=== PATIENT | female | born 1980 ===

== ENCOUNTER → 2020-11-06 | Outpatient (CLI) | payer SELFPAY ==
[~2020-11-06] MED LIST: COVID-19 VACCINE (PFIZER)/PF 30 MCG/0.3 ML VIAL IM ONE; EPINEPHRINE INJ/PF 1 MG/1 ML AMPULE IM PRN
--- OUTSIDE RECORDS SUMMARY | 2020-11-09 10:31 | XMS REPORT ---
:1980 [facility] [address] [place] [address] Care Team Providers Name Role Phone CANDICE BELTRAN Primary Care Physician Unavailable CANDICE BELTRAN Attending Clinician Unavailable SOCORRO VASQUEZ Attending Clinician Unavailable Allergies, Adverse Reactions, Alerts This patient has no known allergies or adverse reactions. Medications Ordered Filled Start Stop Current Ordering Indication Dosage Frequency Signature Comments Components Medication Medication Date Date Medication? Clinician (SIG) Name Name miscellaneo Yes Please Please medical 02-18 draw draw supply Misc 00:00: COVID-19 COVI D19 00 antibody antibody test for test for dx Z20.828 dx and fax to [phone] and fax 06 to miscellaneo 2020- No Please Please medical 02-16 draw draw supply Misc 00:00: 00:00 COVID-19 COVI D-19 00 :00 antibody antibody test for test for dx Z20.828 dx and fax to [phone] and fax 06 to [id number] ELDERBERRY Yes Take by Take b y FRUIT ORAL 1-10 mouth. mouth. 08:24: 28 levoFLOXaci 2018-10 2019- No 500mg Take 1 Take 1 n 1-25 12-05 tablet tablet (LEVAQUIN) 00:00: 23:59 (500 mg (500 m g 500 MG 00 :00 total) by total) by tablet mouth mouth daily. for daily. 10 days for 10 days ACETAMINOPH 2016-10 Yes Take by Take by EN (TYLENOL 1-30 mouth. mouth. ORAL) 11:25: 33 TURMERIC 2016-10 Yes Take by Take by ROOT 1-30 mouth. mouth. EXTRACT 11:25: ORAL 33 BETA 2017- Yes by by GLUCAN, 1-30 Miscellane Miscell an 1,3/1,4-D, 11:25: ous route. eou s MIS 33 route. TURMERIC 2017-0 No Take by Take by ROOT 8-17 mouth. mouth. EXTRACT 11:19: ORAL 29 multivitami 2017-0 No 1{capsu Take 1 Take 1 n capsule 817 le} capsule by capsu le 11:19: mouth by mouth 29 daily. daily. BETA 2017-0 No by by GLUCAN, 8- Miscellane Miscell an 1,3/1,4-D, 11:19: ous route. eou s MISC 29 route. ibuprofen 2016- Yes 600mg Q8H Take 1 Take 1 (ADVIL,MOTR 7-18 tablet tablet IN) 600 MG 00:00: (600 mg (600 m g tablet 00 total) by total) by mouth mouth every every eight (8) eight (8) hours as hours as needed for needed pain (TAKE for pain WITH (TAKE FOOD). WITH FOOD). ibuprofen No 600MG Q8H Take 1 Take 1 (ADVIL,MOTR 7-18 tablet tablet IN) 600 MG 00:00: (600 mg (600 m g tablet 00 total) by total) by mouth mouth every every eight (8) eight (8) hours as hours as needed for needed pain (TAKE for pain WITH (TAKE FOOD). WITH FOOD). methocarbam No 500MG [id number] Take 1 T shahriar 1 ol 05-01 [id number] tablet tablet (ROBAXIN) 00:00: 3D (500 mg (500 mg 500 MG 00 total) by total) by tablet mouth mouth Three (3) Three (3) times a times a day as day as needed needed (muscle (muscle spasm). spasm). methocarbam 2020- No 500mg Q.[id number] Take 1 T shahriar 1 ol 718 -10 [id number] tablet tablet (ROBAXIN) 00:00: 00:00 3D (500 mg (500 mg 500 MG 00 :00 total) by total) by tablet mouth mouth Three (3) Three (3) times a times a day as day as needed needed (muscle (muscle spasm). spasm). amoxicillin 2016- No 500MG Take 1 Take 1 (AMOXIL) 12-2018 capsule capsule 500 MG 00:00: 23:59 (500 mg (500 mg capsule 00 :00 total) by total) b y mouth mouth Three (3) Three (3) times a times a day. for day. for 10 days 10 days amoxicillin 2016- No 500MG Take 1 Take 1 (AMOXIL) 12-2018 capsule capsule 500 MG 00:00: 23:59 (500 mg (500 mg capsule 00 :00 total) by total) b y mouth mouth Three (3) Three (3) times a times a day. for day. for 10 days 10 days ibuprofen 2015-10 No 100MG Q8H Chew 100 Chew 1 00 (ADVIL,MOTR 0-01 mg every mg ev marbella IN) 100 MG 09:22: eight (8) eigh t (8) chewable 41 hours as hours as tablet needed for needed fever. for fever. ibuprofen 2015-10 No 100MG Q8H Chew 100 Chew 1 00 (ADVIL,MOTR 0-01 mg every mg ev marbella IN) 100 MG 09:22: eight (8) eigh t (8) chewable 41 hours as hours as tablet needed for needed fever. for fever. ibuprofen 2015-10- No 100MG Q8H Chew 100 Chew 1 00 (ADVIL,MOTR 0-01 07-18 mg every mg ev marbella IN) 100 MG 09:22: 00:00 eight (8) eigh t (8) chewable 41 :00 hours as hours as tablet needed for needed fever. for fever. amoxicillin 2015-10- No 875MG Take 1 Take 1 (AMOXIL) 0-01 10-11 tablet tablet 875 MG 00:00: 23:59 (875 mg (875 mg tablet 00 :00 total) by total) by mouth Two mouth Two (2) times (2) times a day. for a day. 10 days for 10 days amoxicillin 2015-10- No 875MG Take 1 Take 1 (AMOXIL) 0-01 10-11 tablet tablet 875 MG 00:00: 23:59 (875 mg (875 mg tablet 00 :00 total) by total) by mouth Two mouth Two (2) times (2) times a day. for a day. 10 days for 10 days ACETAMINOPH 2016-0 No Take by Take by EN (TYLENOL 2-16 mouth. mouth. ORAL) 10:09: 10 GUAIFENESIN 2016-0 No Take by Take by /PHENYLEPHR 2-16 mouth. mouth. INE HCL 10:09: (MUCINEX 10 COLD ORAL) ACETAMINOPH 2015-0 No Take by Take by EN (TYLENOL 2-16 mouth. mouth. ORAL) 10:09: 10 ACETAMINOPH 2015-0 No Take by Take by EN (TYLENOL 2-16 mouth. mouth. ORAL) 10:09: 10 GUAIFENESIN 2015-0 No Take by Take by /PHENYLEPHR 2-16 mouth. mouth. INE HCL 10:09: (MUCINEX 10 COLD ORAL) ACETAMINOPH 2015-0 No Take by Take by EN (TYLENOL 2-16 mouth. mouth. ORAL) 10:09: 10 GUAIFENESIN 2015-0 No Take by Take by /PHENYLEPHR 2-16 mouth. mouth. INE HCL 10:09: (MUCINEX 10 COLD ORAL) GUAIFENESIN 2015-0 No Take by Take by /PHENYLEPHR 2-16 mouth. mouth. INE HCL 10:09: (MUCINEX 10 COLD ORAL) ACETAMINOPH 2015-0 No Take by Take by EN (TYLENOL 2-16 mouth. mouth. ORAL) 10:09: 10 GUAIFENESIN 2016-0 2020- No Take by Take by /PHENYLEPHR 2-16 01-10 mouth. mouth. INE HCL 10:09: 00:00 (MUCINEX 10 :00 COLD ORAL) levonorgest 2014-0 No 1{each} 1 each by 1 each by rel 6-21 Intrauteri Intrauter (MIRENA) 20 13:42: ne route ine route mcg/24 hr 09 once. once. (5 years) IUD levonorgest 2014-0 Yes 1{each} 1 each by 1 each by rel 6-21 Intrauteri Intrauter (MIRENA) 20 13:42: ne route ine route mcg/24 hr 09 once. once. (5 years) IUD levonorgest 2014-0 No 1{each} 1 each by 1 each by rel 6-21 Intrauteri Intrauter (MIRENA) 20 13:42: ne route ine route mcg/24 hr 09 once. once. (5 years) IUD levonorgest No 1{each} 1 each by 1 each by rel 6-21 Intrauteri Intrauter (MIRENA) 20 13:42: ne route ine route mcg/24 hr 09 once. once. (5 years) IUD multivitami Yes 1{capsu Take 1 Take 1 n capsule le} capsule by capsu le mouth by mouth daily. daily. Problems Condition Condition Condition Status Onset Resolution Last Treatin g Comments Name Details Category Date Date Treatment Clinician Date Lump of Lump of [id number] Active 2017-05-31 skin of skin of 05-31 11:38:03 back back 00:00: 00 Procedures Procedure Date / Time Performed Performing Clinician Cr swenson US BREAST LIMITED LEFT 2019-10-31 18:27:00 Jacqueline Beltran MAMMO DIGITAL DIAGNOSTIC DAWSON 2019-10-31 18:13:00 Jacqueline Beltran BILATERAL W CAD XR CHEST PA AND LATERAL 2019-09-08 15:47:43 Alfonzo Esparza Wort h POCT RAPID INFLUENZA JAY 2019-09-08 15:44:00 Alfonzo Esparza Wor th FLUCELVAX QUADRIVALENT PFS IM; 2018-07-27 10:56:47 Shahnaz Win WITHOUT PERSERVATIVE (48+ MO) MRI LUMBAR SPINE WO CONTRAST 2017-10-12 21:37:37 Gokul Vasquezhalmaricruz Results Test Description Test Time Test Comments Text Results Atomic Results Result Comments SARS-CoV-2 RNA Nose Ql JAY+probe 2020-10-01 00:00:00 Test Item Value Reference Range Comments SARS-CoV-2 RNA Nose Ql JAY+probe Not detected [place] [facility] Case ID: (test code = 97634-4) [id number] SARS-CoV-2 RNA Nose Ql [id number]+[id number] 00:00:00 Test Item Value Reference Range Comments SARS-CoV-2 RNA Nose Ql Not detected [place] [facility] Case JAY+probe (test code = ID: 66859 9631 58164-9) SARS-CoV-2 RNA Resp Ql [id number]+[id number] 00:00:00 Test Item Value Reference Range Comments SARS-CoV-2 RNA Resp Ql Not detected [place] [facility] Case JAY+probe (test code = ID: 29420 9631 22826-3) SARS-CoV-2 RNA Resp Ql [id number]+[id number] 00:00:00 Test Item Value Reference Range Comments SARS-CoV-2 RNA Resp Ql Not detected [place] [facility] Case JAY+probe (test code = ID: 51759 9631 96636-0) #[id number] 13:27:00US Breast Limited Left (10/31/2019 1:27 PM EST)SpecimenImpressionsPerformed AtNo mammographic or sonographic evidence for malignancy at this time. Final Assessment: BIRADS 1: Negative. Recommendations: Bilateral screening mammogram in/at 12 months. Notes: These results were discussed with the patient at the time of imaging.--Mammography does not detect all cancers. Any suspicious palpable mass should be evaluated further clinically.--The patient has been entered into a reminder system witha target due date for the next mammogram.--Letter sent to the patient. [facility] RADNarrativePerformed AtExam: Bilateral Diagnostic 3-D Mammogram with CAD and Breast Ultrasound History: Patient has an area of palpable concern in her upper outer left breast. Technique: Bilateral digital diagnostic 2-D and 3-D mammogram with CAD (Computer-Aided Detection). Left breast ultrasound. Comparison: None. Breast Density: b - There are scattered areas of fibroglandular density Findings: PHYSICAL EXAM: Palpation throughout the area of clinical concern in the upper left breast is performed. No focal hard mass is palpated. There are no skin changes. The nipple is normal and there is no nipple discharge. MAMMOGRAM FINDINGS: There are scattered fibroglandular densities in each breast. There is no dominant mass or asymmetry. There are no areas of skin thickening or architectural distortion. There are no suspicious microcalcifications. Both breasts are unremarkable. ULTRASOUND FINDINGS: Real- time sonography is performed in a wide area throughout the upper and outer aspect of this patient's left breast. Nobreast mass or cyst is seen. [facility] RADProcedure NoteInterface, Rad Results In - 10/31/2019 3:10 PM ESTExam: Bilateral Diagnostic 3-D Mammogram with CAD and Breast Ultrasound History: Patient has an area of palpable concern in her upper outer left breast. Technique: Bilateral digital diagnostic 2-D and 3-D mammogram with CAD (Computer-Aided Detection). Left breast ultrasound. Comparison: None. Breast Den sity: b - There are scattered areas of fibroglandular density Findings: PHYSICAL EXAM: Palpation throughout the area of clinical concern in the upper left breast is performed. No focal hard mass is palpated. There are no skin changes. The nipple is normal and there is no nipple discharge. MAMMOGRAM FINDINGS: There are scattered fibroglandular densities in each breast. There is no dominant mass or asymmetry. There are no areas of skin thickening or architectural distortion. There are no suspicious microcalcifications. Both breasts are unremarkable. ULTRASOUND FINDINGS: Real-time sonography is performed in a wide area throughout the upper and outer aspect of this patient's left breast. No breast mass or cyst is seen. IMPRESSION: No mammographic or sonographic evidence for malignancy at this time. Final Assessment: BIRADS 1: Negative. Recommendations: Bilateral screening mammogram in/at 12 months. Notes: These results were discussed with the patient at the time of imaging. --Mammography does not detect all cancers. Any suspicious palpable mass should be evaluated further clinically. --The patienthas been entered into a reminder system with a target due date for the next mammogram. --Letter sentto the patient. Performing OrganizationAddressCity/State/ZipcodePhone [facility] [id number] [facility] [place] [address]#[id number] 13:13:00Mammo Digital Diagnostic Dawson Bilateral W CAD (10/31/2019 1:13 PM EST)SpecimenImpressionsPerformed At mammographic or sonographic evidence for malignancy at this time. Final Assessment: BIRADS 1: Negative. Recommendations: Bilateral screening mammogram in/at 12 months. Notes: These results were discussed with the patient at the time of imaging.--Mammography does not detect all cancers. Any suspicious palpable mass should be evaluated further clinically.--The patient has been entered intoa reminder system with a target due date for the next mammogram.--Letter sent to the patient. [facility] RAD NarrativePerformed AtExam: Bilateral Diagnostic 3-D Mammogram with CAD and Breast Ultrasound History: Patient has an area of palpable concern in her upper outer left breast. Technique: Bilateral digital diagnostic 2-D and 3-D mammogram with CAD (Computer-Aided Detection). Left breast ultrasound. Comparison: None. Breast Density: b - There are scattered areas of fibroglandular density Findings: PHYSICAL EXAM: Palpation throughout the area of clinical concern in the upper left breast is performed. No focal hard mass is palpated. There are no skin changes. The nipple is normal and there isno nipple discharge. MAMMOGRAM FINDINGS: There are scattered fibroglandular densities in each breast. There is no dominant mass or asymmetry. There are no areas of skin thickening or architectural distortion. There are no suspicious microcalcifications. Both breasts are unremarkable. ULTRASOUND FINDINGS: Real- time sonography is performed in a wide area throughout the upper and outer aspect of this patient's left breast. No breast mass or cyst is seen. [facility] RADProcedure NoteInterface, Rad Results In -10/31/2019 3:10 PM ESTExam: Bilateral Diagnostic 3-D Mammogram with CAD and Breast Ultrasound History: Patient has an area of palpable concern in her upper outer left breast. Technique: Bilateral digital diagnostic 2-D and 3-D mammogram with CAD (Computer-Aided Detection). Left breast ultrasound. Comparison: None. Breast Density: b - There are scattered areas of fibroglandular density Findings: PHYSICAL EXAM: Palpation throughout the area of clinical concern in the upper left breast is performed. Nofocal hard mass is palpated. There are no skin changes. The nipple is normal and there is no nipple discharge. MAMMOGRAM FINDINGS: There are scattered fibroglandular densities in each breast. There is no dominant mass or asymmetry. There are no areas of skin thickening or architectural distortion. There are no suspicious microcalcifications. Both breasts are unremarkable. ULTRASOUND FINDINGS: Real-time sonography is performed in a wide area throughout the upper and outer aspect of this patient's left breast. No breast mass or cyst is seen. IMPRESSION: No mammographic or sonographic evidence for malignancy at this time. Final Assessment: BIRADS 1: Negative. Recommendations: Bilateral screening mammogram in/at 12 months. Notes: These results were discussed with the patient at the time of imaging. -- Mammography does not detect all cancers. Any suspicious palpable mass should be evaluated further clinically. --The patient has been entered into a reminder system with a target due date for the next mammogram. --Letter sent to the patient. Performing OrganizationAddressCity/State/ZipcodePhone [facility] [id number] [facility] [place] [address]#[id number] 10:52:28XR Chest 2 views (09/08/2019 10:47 AM EST)SpecimenImpressionsPerformed AtRight lower lobe infiltrateSigned (Electronic Signature): 09/08/2019 10:53 AM Signed By: EDUARDO Rios RADNartivePerformed AtExam: Chest Two Views History: Cough Technique: 2 views Comparison: 2016 Findings: Right lower lobe infiltrate is demonstrated suggesting pneumonia. Left lung is clear. There is no associated pleural effusion. Cardiac silhouette is unchanged and unremarkable. [facility] RADProcedure NoteInterface, Rad Results In - 09/08/2019 10:55 AM ESTExam: Chest Two Views History: Cough Technique: 2 views Comparison: 2016 Findings: Right lower lobe infiltrate is demonstrated suggesting pneumonia. Left lung is clear. There is no associated pleural effusion. Cardiac silhouette is unchanged and unremarkable. IMPRESSION: Right lower lobe infiltrate Signed (Electronic Signature): 09/08/2019 10:53 AM Signed By: Bob Riosforming OrganizationAddONTRAPORTty/[facility]/ZipcodePhone [facility] [id number] [facility] [place] [address]#[id number] 10:52:28XR Chest 2 views (09/08/2019 10:47 AM EST)SpecimenImpressionsPerformed AtRight lower lobe infiltrateSigned (Electronic Signature): 09/08/2019 10:53 AM Signed By: EDUARDO Rios RADEsvinformed AtExam: Chest Two Views History: Cough Technique: 2 views Comparison: 2016 Findings: Right lower lobe infiltrate is demonstrated suggesting pneumonia. Left lung is clear. There is no associated pleural effusion. Cardiac silhouette is unchanged and unremarkable. [facility] RADProcedure NoteInterface, Rad Results In - 09/08/2019 10:55 AM ESTExam: Chest Two Views History: Cough Technique: 2 views Comparison: 2016 Findings: Right lower lobe infiltrate is demonstrated suggesting pneumonia. Left lung is clear. There is no associated pleural effusion. Cardiac silhouette is unchanged and unremarkable. IMPRESSION: Right lower lobe infiltrate Signed (Electronic Signature): 09/08/2019 10:53 AM Signed By: DURGA Rioserforming OrganizationAddressCity/State/ZipcodePhone [facility] [id number] [facility] [place] [address]#[id number] 10:44:00 Test Item Value Reference Range Comments Rapid Influenza A JAY, POC (test code = Rapid Negative Ne gative Influenza A JAY, POC) Rapid Influenza B JAY, POC (test code = Rapid Negative Ne gative Influenza B JAY, POC) POC RAPID INFLUENZA INTERNAL CONTROL (test QC Acceptable code = POC RAPID INFLUENZA INTERNAL CONTROL) Rapid Influenza Lot, POC (test code = Rapid [id number] Influenza Lot, POC) Rapid Influenza Expiration Date, POC (test 11/25/2019 code = Rapid Influenza Expiration Date, POC) INSTR S/N Influenza POCT (test code = INSTR 1129H30F S/N Influenza POCT) #[id number] 10:08:11MRI Lumbar Spine Wo Contrast (10/12/2017 4:37 PM EST)SpecimenImpressionsPerformed At1. No mass or suspicious pathology in the region of clinical concern.2. Mild disc and facet degeneration mid to low lumbar spine without neural impingement. Signed (Electronic Signature): 2017 10:11 AM Signed By: Angel Spencer [facility] RADNarrativePerformed AtExam:MRI Lumbar Spine without contrast History:P alpable abnormality right back soft tissues. Technique:Complete MRI of the lumbar spine without contrast. Comparison:None. Findings: The region of clinical concern is marked by 2 vitamin E capsules. Deep to this is normal- appearing subcutaneous fat and paraspinal musculature. No mass or suspicious imaging findings. No focal malalignment. Very mild disc degeneration L3-4, L4-5, and T11-T12. Noacute fracture or pars defect. Conus terminates normally. Cauda equina nerve roots unremarkable. Imaged abdomen and pelvic soft tissues unremarkable. Lower thoracic levels:No significant focal abnormality. L1- 2:No significant focal abnormality. L2-3:No significant focal abnormality. L3-4:Mild diffuse disc bulge. L4-5:Mild disc bulge and facet arthropathy. L5-S1:No significant focal abnormality. [facility] RADProcedure NoteInterface, Rad Results In - 2017 10:13 AM ESTExam: MRI Lumbar Spine without contrast History: Palpable abnormality right back soft tissues. Technique: Complete MRI of the lumbar spine without contrast. Comparison: None. Findings: The region of clinical concern is marked by 2 vitamin E capsules. Deep to this is normal-appearing subcutaneous fat and paraspinal musculature. No mass or suspicious imaging findings. No focal malalignment. Very mild disc degenera tion L3-4, L4-5, and T11-T12. No acute fracture or pars defect. Conus terminates normally. Cauda equina nerve roots unremarkable. Imaged abdomen and pelvic soft tissues unremarkable. Lower thoracic levels: No significant focal abnormality. L1-2: No significant focal abnormality. L2-3: No significant focal abnormality. L3-4: Mild diffuse disc bulge. L4-5: Mild disc bulge and facet arthropathy. L5- S1: No significant focal abnormality. IMPRESSION: 1. No mass or suspicious pathology in the region of clinical concern. 2. Mild disc and facet degeneration mid to low lumbar spine without neural impingement. Signed (Electronic Signature): 2017 10:11 AM Signed By: Angel Spencer [facility]ENS-LIMESTONE HOSPITALerforming OrganizationAddressCity/State/ZipcodePhone NumberOK[facility] [id number] [facility].[place], [place] [address]RC Soft Tissue [id number] 11:29:35US Soft Tissue Abdomen (06/04/2017 11:29 AM) Specimen Performing Laboratory [facility] RAD [address] [facility] [place] [address] Impressions No discrete cystic or solid mass identified. Signed (Electronic Signature): 06/04/2017 11:48 AM Signed By: Franko Dias MD Narrative Exam:Ultrasound of the Abdomen Wall History:Palpable concern on the left lower back. Technique:Realtime ultrasonography of the abdominal wall. Comparison:None Findings:No solid or cytic mass lesions are identified. No fluid collections. No evidence of abdominal wall defect or hernia. The palpable concern correlates with subcutaneous fatty tissues, slightly left of midline. Procedure Note Interface, RadResults In - 06/04/2017 11:50 AM EDT Exam: Ultrasound of the Abdomen Wall History: Palpable concern on the left lower back. Technique: Realtime ultrasonography of the abdominal wall. Comparison: None Findings: No solid or cytic mass lesions are identified. No fluid collections. No evidence of abdominal wall defect or hernia. The palpable concern correlates with subcutaneous fatty tissues, slightly left of midline. IMPRESSION: No discrete cystic or solid mass identified. Signed (Electronic Signature): 06/04/2017 11:48 AM Signed By: Franko Hernandez MDUrinalysis2017-07-18 14:54:00 Test Item Value Reference Range Comments Color, UA (test code = Color, UA) Yellow Clarity, UA (test code = Clarity, UA) Clear Specific Clinton, UA (test code = Specific 1.010 1.005 -1.030 Clinton, UA) pH, UA (test code = pH, UA) 7.0 5.0-8.0 Leukocyte Esterase, UA (test code = Leukocyte Negative Ne gative Esterase, UA) Nitrite, UA (test code = Nitrite, UA) Negative Negative Protein, UA (test code = Protein, UA) Negative Negative Glucose, UA (test code = Glucose, UA) Negative Negative Ketones, UA (test code = Ketones, UA) Negative Negative Bilirubin, UA (test code = Bilirubin, UA) Negative Negati ve Blood, UA (test code = Blood, UA) Trace Negative RBC, UA (test code = RBC, UA) 1 /HPF 0-3 /HPF WBC, UA (test code = WBC, UA) 1 /HPF 0-2 /HPF Squam Epithel, UA (test code = Squam Epithel, 1 /HPF 0- 5 /HPF UA) Bacteria, UA (test code = Bacteria, UA) None Seen None See n /HPF Urine Collection Type (test code = Urine Urine, Voided Collection Type) Qualitative, [id number] 14:54:00 Test Item Value Reference Range Comments Preg Test, Ur (test code = Preg Test, Ur) Negative Negati ve [facility] Rapid Group A Strep Antigen (Sent to Lab)2017-05-01 14:51:00 Test Item Value Reference Range Comments Rapid Strep A Screen (test code = Rapid Strep A Negative Negative Screen) [facility] Rapid Group A Strep Antigen (Sent to Lab)2016-07-15 09:28:00 Test Item Value Reference Range Comments Rapid Strep A Screen (test code = Rapid Strep A Positive Negative Screen) Encounters Start End Encounter Admission Attending Care Care Encounter Date/Time Date/Time Type Type Clinicians Facility Department ID 2020-11-08 2020-11-08 [facility] [id number] 12:50:22 23:59:00 2020-11-08 2020-11-08 [facility] [id number] 12:49:22 23:59:00 2020-11-08 2020-11-08 Outpatient [facility] JAY JAY [id number] 00:00:00 23:59:00 [id number] 2020-11-08 Outpatient [facility], [facility] JAY JAY [id number] 12:53:30 12:53:30 JACQUELINE [id number] 2020-11-08 2020-11-08 Outpatient [facility], [facility] JAY JAY [id number] 12:53:28 12:53:28 JACQUELINE [id number] 2020-11-08 2020-11-08 Outpatient [facility] JAY JAY [id number] 12:50:22 12:50:22 [id number] 2020-11-08 2020-11-08 Outpatient [facility] JAY JAY [id number] 12:49:22 12:49:22 [id number] 2020-11-04 2020-11-04 [facility] [id number] 00:00:00 00:00:00 2020-02-19 2020-02-19 [facility] 3 [id number] 09:41:47 09:41:47 D 2020-02-19 2020-02-19 [facility] [id number] 00:00:00 00:00:00 2020-02-17 2020-02-17 [facility] [id number] 00:00:00 00:00:00 2019-10-31 2019-10-31 [facility] [id number] 13:15:00 23:59:00 2019-10-31 2019-10-31 [facility] [id number] 13:00:00 23:59:00 2019-10-24 2019-10-31 Outpatient EL RUBY, [facility] [id number] 09:14:41 23:59:00 JACQUELINE [id number] 2019-10-24 2019-10-31 Outpatient RU[facility],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
== END ==
LOC: EMPHEALTH 15:40
PROVIDERS: ATTEND Internal Medicine
DX: Z23 Encounter for immunization (principal)
CPT/HCPCS: 91300